=== PATIENT | male | born 1970 | race Caucasian/White ===

== ENCOUNTER 2017-04-05 03:27 | Emergency (ER) | payer BC ==
[2017-04-05] MEDS: KETOROLAC 30 MG/ML INJ. IM ×2 (04:08)
== END 2017-04-05 04:30 | disposition home or self-care (01) ==
LOC: ER 03:27
DX: S99.922A Unspecified injury of left foot, initial encounter (principal); X58.XXXA Exposure to other specified factors, initial encounter; Y93.89 Activity, other specified; Y92.89 Other specified places as the place of occurrence of the external cause; Y99.8 Other external cause status
CPT/HCPCS: 73630; 96372; 99284; J1885